=== PATIENT | male | born 1970 | race Caucasian/White ===

== ENCOUNTER 2016-12-08 14:48 | Emergency (ER) | payer BC ==
[2016-12-08 15:07] VITALS: BP 133/81
--- NOTE | 2016-12-08 15:32 | ERNOTE ---
Lower Extremity HPI - Narrative Date of Service: 12/08/16 - General Lower Extremities Pain: ankle: bilateral - severe pain in both ankles no acute injury Time Seen by Provider: 12/08/16 15:31 Source: patient Exam Limitations: other - walking is painful - Immun/Allergies/Home Medications Immunizations: IMMUNIZATION HX Immunizations Up to Date Yes History of Influenza Vaccine Yes Hx Pneumococcal Vaccination Yes Allergies/Adverse Reactions: Allergies Allergy/AdvReac Type Severity Reaction Status Date / Time No Known Allergies Allergy Verified 12/08/16 15:06 Home Medications: HOME MEDICATIONS Singulair 01/20/15 [Last Taken Unknown] Symbicort 01/20/15 [Last Taken Unknown] Ventolin Hfa PRN 01/20/15 [Last Taken Unknown] Doxycycline Monohydrate [Monodox] 100 mg PO BID #28 capsule 12/08/16 [Last Taken Unknown] Naproxen [Naprosyn] 500 mg PO BID PRN #60 tab 12/08/16 [Last Taken Unknown] - History of Present Illness Narrative: Patient states concerns for lyme's disease due to tick bite about 1 month ago. No over the last month worsening pain in ankles, denies rash, fever, chills. complains of paresthesia of feet Date (Duration): 12/08/16 Occurred: other - over the last month Location of Incident: [place] Method of Injury: Reports: other - tick bite Loss of Consciousness: Reports: no loss of consciousness Associated Symptoms: Reports: sensory loss - bilat feet and ankles. Prior Treament: Reports: other - has not seen his provider Review of Systems - Narrative Narrative: ROS: Constitutional: no symptoms reported eye: no symptoms reported ENT: No symptoms reported Respiratory : no symptoms reported Cardiology: no symptoms reported Gastrointestinal/ Abdominal : no symptoms reported Genitourinary: no symptoms reported Musculo-skeletal: bilat ankle pain and decreased sensation Skin : left hand dorsal pain in areas of burn see hpi Neurological: no symptoms reported Psych: no symptoms reported. All other System : negative as marked. - Patient's Past Medical History Patient History - Medical: No pertinent hx Patient History - Cardiac/Respiratory: Asthma, COPD Patient History - Cancer: No Hx of Cancer Patient History - Surgical Procedures: No surgical history Patient History - Other: None - Social History Living Situations: home Psych History: No pertinent hx Smoking Status: Current every day smoker Have you smoked in the past 12 months: Yes - Immunizations Immunizations Up to Date: Yes Hx Pneumococcal Vaccination: Yes History of Influenza Vaccine: Yes Physical Exam - Physical Exam General Appearance: Present: wd/wn, alert, no apparent distress Eye Exam: Normal inspection: bilateral, PERRL: bilateral, EOMI: bilateral Ears, Nose, Throat: Present: normal ENT inspection, normal pharynx Neck: Present: normal inspection, nontender Respiratory: Present: no respiratory distress, no accessory muscle use, chest nontender, decreased breath sounds Cardiovascular/Chest: Present: regular rate, rhythm, no murmur, normal peripheral pulses Gastrointestinal/Abdominal: Present: normal bowel sounds, nontender, nondistended Rectal Exam: Present: nontender, normal rectal tone Male Genitals Exam: Present: normal prostate, no hernia, deferred Back Exam: Present: normal inspection, normal range of motion, no CVA tenderness , no vertebral tenderness Extremity Exam: Present: normal inspection, no edema, decreased range of motion , other - paresthesias bilat ankles and feet Neurological Exam: Present: alert, oriented, normal mood/affect, no motor/ sensory deficits. Absent: motor weakness DTR: N=norm/NB=norm/brisk/A=abs/DD=dull/dimin/HC=hyperactive: Ankle (R): Normal , Ankle (L): Normal Skin Exam: Present: normal color, warm/dry Lymphatic Exam: Present: no adenopathy ED Progress - Results and Orders Patient's Lab Results:: I have reviewed the patient's lab results. Results and Orders: Laboratory Tests 12/08/16 12/08/16 16:00 16:00 WBC 13.0 H RBC 5.28 Hgb 16.6 Hct 49.3 MCV 93.4 MCH 31.4 H MCHC 33.7 RDW 13.6 Plt Count 280 MPV 9.9 H Immature Gran % (Auto) 1.00 H Immature Gran # (Auto) 0.13 H Neutrophils % 70.0 Lymphocytes % 22.1 Monocytes % 5.8 Eosinophils % 0.6 Basophils % 0.5 Nucleated RBC % 0.0 Neutrophils # 9.1 H Lymphocytes # 2.9 Monocytes # 0.8 Eosinophils # 0.1 Absolute Basophils 0.1 Sodium 143 H Plasma Sodium 143 H Potassium 4.5 Chloride 102 Carbon Dioxide 39.8 H Anion Gap 5.7 L BUN 12 Creatinine 1.02 Est GFR (Non-Af Amer) 83 BUN/Creatinine Ratio 11.8 Random Glucose 128 H Uric Acid 4.2 Calcium 8.7 Calcium Adj for Albumin 8.9 Total Bilirubin 0.2 AST 17 ALT 17 L Alkaline Phosphatase 77 C-Reactive Prot, Quant Less than 0.2 Total Protein 7.2 Albumin 3.4 - Vital Signs Patient's Vital Signs:: I have reviewed the patient's vital signs. Vital Signs: Vital Signs 12/08/16 15:02 Temperature 36.7 C Pulse Rate 88 Respiratory 20 Rate Blood Pressure 133/81 O2 Sat by Pulse 96 Oximetry - Progress/Reassessment Chief Complaint: Lower Extremity Pain/ Injury Progress:: Improved - naproxen helped - Transfer of Care Expected Disposition: Discharge Plan - Plan Plan: patient declined xrays of bilateral ankles, blood work was completed. osteoarthitis pain will be treated with the naproxen and the possible lymes titer will be treated with the doxycycline until results of titer return. 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
[2016-12-08] MEDS ORDERED: NAPROXEN SODIUM 550 MG TABLET PO ONE (15:55)
[2016-12-08 16:06] LABS: Hematocrit 49.3 % (42.0-52.0); Hemoglobin 16.6 gm/dL (13.5-18.0); Mean Cell Volume 93.4 fl (78-100); Mean Corpuscular Hemoglobin 31.4 pg (27-31); Mean Corpuscular Hgb Conc 33.7 g/dl (32-36); Mean Platelet Volume 9.9 fl (6.0-9.5); Neutrophil # 9.1 K/mm3 (1.3-6.0); Platelet Count 280 K/mm3 (150-450); Red Blood Count 5.28 M/mm3 (4.7-6.0); Red Cell Distribution Width 13.6 % (11.5-14.0)
[2016-12-08] MEDS ORDERED: NAPROXEN SODIUM 550 MG TABLET ONE (16:09)
[2016-12-08 16:20] LABS: ALT 17 U/L (19-67); AST 17 U/L (0-48); Albumin * 3.4 gm/dl (3.4-5.0); Alkaline Phosphatase * 77 U/L (50-170); Anion Gap 5.7 mmol/L (6.8-13.8); BUN/Creatinine Ratio 11.8 (9.0-21.6); Bilirubin, Total 0.2 mg/dL (0.0-1.1); Blood Urea Nitrogen 12 mg/dL (6-23); Ca. Corrected For Albumin 8.9 mg/dL (8.4-10.2); Calcium * 8.7 mg/dL (7.9-10.9); Carbon Dioxide 39.8 mmol/L (24-32.6); Chloride 102 mmol/L (97-106); Glucose * 128 mg/dL (70-110); Potassium 4.5 mmol/L (3.4-4.6); Sodium 143 mmol/L (132-142); Total Protein 7.2 gm/dL (6.2-8.2); Uric Acid 4.2 mg/dL (2.6-7.2)
== END 2016-12-08 17:30 | disposition home or self-care (01) ==
LOC: ER 14:48
DX: A69.23 Arthritis due to Lyme disease (principal); M25.571 Pain in right ankle and joints of right foot; Z72.0 Tobacco use